=== PATIENT | male | born 1970 | race Caucasian/White ===

== ENCOUNTER 2021-02-27 16:13 | Emergency (ER) | payer OTHER ==
[~2021-02-27 16:13] MED LIST: CARAFATE 1 GM TA1 GM PO; CELEXA40 MG PO; LISINOPRIL30 MG PO; LORTAB 5-325 M1 EACH PO; MAALOX PLUS 3030 ML PO; PHENERGAN 25 MG25 M1 PO; PROTONIX 40 MG40 M1 PO
== END 2021-02-27 18:55 | disposition home or self-care (01) ==
LOC: ER1 16:13
DX: R10.9 Unspecified abdominal pain (principal); R11.2 Nausea with vomiting, unspecified; I10 Essential (primary) hypertension; F17.200 Nicotine dependence, unspecified, uncomplicated; Z90.49 Acquired absence of other specified parts of digestive tract; Z90.89 Acquired absence of other organs
CPT/HCPCS: 99283